=== PATIENT | female | born 1970 | race Caucasian/White ===

== ENCOUNTER 2020-04-01 16:04 | Emergency (ER) | payer MEDICAID ==
[~2020-04-01 16:04] MED LIST: Amoxicillin/Clavulanate K 875-125 MG Tab ONE
--- NOTE | 2020-04-01 16:24 | EDM.PDOC ---
ED HPI GENERAL MEDICAL PROBLEM - General Chief Complaint: General Stated Complaint: TOOTH PAIN Time Seen by Provider: 04/01/20 16:24 Source of Information: Reports: Patient History Limitations: Reports: No Limitations - History of Present Illness INITIAL COMMENTS - FREE TEXT/NARRATIVE: reports left sided toothache for several days, and today she noted some swelling. no fever or chills. Took Tylenol and Oragel without benefit. h/o recurrent teeth infection in the past. She has denture for the upper jaw, and planning to get one for the lower side due to recurrent infections in this area. Eating and drinking well. no breathing problems. she is from [place], here for fishing trip. Onset: Gradual Duration: Week(s): (1) Past Medical History - Past Health History Medical/Surgical History: Denies Medical/Surgical History Cardiovascular History: Reports: None Respiratory History: Reports: None ED ROS GENERAL - Review of Systems Review Of Systems: See Below Constitutional: Reports: No Symptoms. Denies: Fever, Chills HEENT: Reports: Dental Pain Respiratory: Reports: No Symptoms Cardiovascular: Reports: No Symptoms Musculoskeletal: Reports: No Symptoms Neurological: Reports: No Symptoms ED EXAM, GENERAL - Physical Exam Exam: See Below Exam Limited By: No Limitations General Appearance: Alert, No Apparent Distress Eye Exam: Bilateral Eye: EOMI, PERRL Throat/Mouth: Normal Inspection, Normal Oropharynx, No Airway Compromise, Other (multiple teeth decays. no e/o gum swelling or drainage. mild TTP over left pre- molar) Head: Atraumatic Neck: Normal Inspection Respiratory/Chest: No Respiratory Distress Cardiovascular: Regular Rate, Rhythm, No Edema Neurological: Alert, Oriented Course - Re-Assessments/Exams Free Text/Narrative Re-Assessment/Exam: discussed with the patient the importance of scheduling appointment with her dentist and to discuss getting a lower denture. will start antibiotic therapy - Augmentin PO - patient has used it in the past with positive result. will also prescribe Diflucan due to h/o yeast infection with previous treatments. Departure - Departure Time of Disposition: 16:41 Disposition: Home, Self-Care 01 Condition: Good Clinical Impression: Toothache, Dental infection - Discharge Information *PRESCRIPTION DRUG MONITORING PROGRAM REVIEWED*: Not Applicable *COPY OF PRESCRIPTION DRUG MONITORING REPORT IN PATIENT JAMIR: Not Applicable Instructions: Dental Abscess, Dental Abscess, [id number] Forms: ED Department Discharge - Problem List & Annotations (1) Dental infection SNOMED Code(s): 451287679 Code(s): K04.7 - PERIAPICAL ABSCESS WITHOUT SINUS Status: Acute Current Visit: Yes (2) Toothache SNOMED Code(s): 46754537 Code(s): K08.89 - OTHER SPECIFIED DISORDERS OF TEETH AND SUPPORTING STRUCTURES Status: Acute Current Visit: Yes - Assessment/Plan Plan: - please take your antibiotics as prescribed - continue to use Tylenol for pain - follow up with your dentist in 1-2 weeks - return to the ER if symptoms got worse or any concerns
== END 2020-04-01 16:49 | disposition home or self-care (01) ==
LOC: LB.ED 16:04
DX: K04.7 Periapical abscess without sinus (principal); K02.9 Dental caries, unspecified
CPT/HCPCS: 99282; A9270; 99283